=== PATIENT | female | born 1965 | race African-American/Black ===

== ENCOUNTER 2017-09-08 11:43 | Observation (INO) | payer OTHER ==
--- NOTE | 2017-09-08 13:34 | PDOC ---
History of Present Illness - General Chief Complaint: Chest Pain Stated Complaint: CHEST PAIN/ RT SIDE NUMBNESS Time Seen by Provider: 09/08/17 13:28 History Source: Patient Exam Limitations: No Limitations - History of Present Illness Initial Comments: 09/08/17 15:17 51F with pmh of fibromyalgia and chronic back pain s/p laminectomy and fusion, and rheumatoid arthritis presents with 9/10 pain that started in the neck and progressed in the right side of her head, chest, back, right arm, right hip and right legs for the past 2 days. Also complains of blurry vision associated with her headaches. The pain has been progressively worse and has prevented her from sleeping the past few days. No nuchal rigidity, no shortness of breath, dysuria Last seen her industry consultant Dr. Byers in June 2016 09/08/17 16:25 09/08/17 17:38 Past History - Past Medical History Allergies/Adverse Reactions: Allergies Allergy/AdvReac Type Severity Reaction Status Date / Time peanut Allergy Severe Rash Verified 09/08/17 11:55 oxycodone AdvReac Itching Verified 09/08/17 11:55 Home Medications: Ambulatory Orders NK [No Known Home Medication] 09/08/17 Anemia: Yes Asthma: No Cancer: No Cardiac Disorders: No CVA: No COPD: No CHF: No Dementia: No Diabetes: No GI Disorders: No Disorders: No HTN: Yes Hypercholesterolemia: No Liver Disease: No Seizures: No Thyroid Disease: No - Surgical History Abdominal Surgery: No Appendectomy: No Cardiac Surgery: No Cholecystectomy: No Lung Surgery: No Neurologic Surgery: Yes (FUSION, RODS) Orthopedic Surgery: No - Immunization History Immunization Up to Date: Yes - Suicide/Smoking/Psychosocial Hx Smoking History: Never smoked Have you smoked in the past 12 months: No Hx Alcohol Use: Yes Drug/Substance Use Hx: No Substance Use Type: Alcohol Hx Substance Use Treatment: No Review of Systems - Review of Systems Able to Perform ROS?: Yes Constitutional: Yes: Weakness. No: Chills, Fever HEENTM: Yes: Blurred Vision, Recent change in vision Respiratory: No: Symptoms reported Cardiac (ROS): Yes: Chest Pain ABD/GI: Yes: Abdominal cramping. No: Symptoms Reported, Abd. Pain w/ defecation , Constipated, Nausea : No: Symptoms Reported Musculoskeletal: Yes: Back Pain, Muscle Pain Integumentary: No: Bruising, Change in Color, Dryness, Erythema Neurological: Yes: Headache, Numbness. No: Paresthesia, Seizure All Other Systems: Reviewed and Negative *Physical Exam - Vital Signs Last Vital Signs Temp Pulse Resp BP Pulse Ox 99.3 F 96 H 19 142/103 99 09/08/17 11:55 09/08/17 11:55 09/08/17 11:55 09/08/17 11:55 09/08/17 11:55 - Physical Exam General Appearance: Yes: Nourished, Appropriately Dressed, Moderate Distress. No: Alcohol on Breath, Intoxicated HEENT: positive: EOMI, QUIRINO Neck: positive: Tender, Decreased range of motion Respiratory/Chest: positive: Chest Tender, Lungs Clear, Normal Breath Sounds. negative: Respiratory Distress Cardiovascular: positive: Regular Rhythm, Regular Rate, S1, S2 Vascular Pulses: Dorsalis-Pedis (R): 2+, Doralis-Pedis (L): 2+ Gastrointestinal/Abdominal: positive: Tender (lower R quadrant), Guarding Musculoskeletal: negative: CVA Tenderness Extremity: negative: Normal Range of Motion Neurologic: positive: Fully Oriented, Alert, Normal Mood/Affect, Sensory Deficit ED Treatment Course - LABORATORY CBC & Chemistry Diagram: 09/09/17 06:15 09/08/17 14:43 Medical Decision Making - Medical Decision Making 09/08/17 14:51 51F with pmh of fibromyalgia and chronic back pain s/p laminectomy and fusion, and rheumatoid arthritis presents with 9/10 generalized right-sided pain Spoke to Dr. Barbara Byers [employer], last saw the patient June 2016 for her second visit, says the the patient tested negative for all serology including KELLI, RF WBC 17.5, + LEQ tenderness UA neg CTA w/PO and IV contrast pending. D-dimer >5000. Could be from msk inflammatory process Venous Doppler of Upper and Lower extremities pending. If positive, will have to wait before doing CTA. 09/08/17 18:15 09/08/17 19:08 PAtient signed out to Dr. Rodriguez *DC/Admit/Observation/Transfer Diagnosis at time of Disposition: Pain of right side of body
[2017-09-08] MEDS ORDERED: KETOROLAC TROMETHAMINE 60 MG/2 ML VIAL IVPUSH ONE (13:41)
[2017-09-08] MEDS ORDERED: KETOROLAC TROMETHAMINE 60 MG/2 ML VIAL IM ONE (13:48)
[2017-09-08] MEDS ORDERED: KETOROLAC TROMETHAMINE 60 MG/2 ML VIAL ONE (14:00)
[2017-09-08 14:01] LABS: BASOPHIL 0.9 % (0-2.0); MCH 22.8 pg (25.7-33.7); MCHC 31.4 g/dl (32.0-36.0); MEAN CELL VOLUME 72.8 fl (80-96); MEAN PLT VOLUME 7.4 fl (7.5-11.1); NEUTROPHILS 74.9 % (42.8-82.8); PLATELET COUNT 417 K/MM3 (134-434); RDW 16.9 % (11.6-15.6); WHITE BLOOD COUNT 17.5 K/mm3 (4.0-10.0)
[2017-09-08 14:15] LABS: URINE APPEARANCE SLCLOUDY; URINE BILIRUBIN NEGATIVE (NEGATIVE); URINE BLOOD NEGATIVE (NEGATIVE); URINE COLOR LTYELLOW; URINE GLUCOSE (UA) NEGATIVE (NEGATIVE); URINE KETONE NEGATIVE (NEGATIVE); URINE NITRITE NEGATIVE (NEGATIVE); URINE PROTEIN NEGATIVE (NEGATIVE); URINE UROBILINOGEN NEGATIVE mg/dL (0.2-1.0)
[2017-09-08 15:28] LABS: ALBUMIN 3.8 g/dl (3.4-5.0); ALK PHOS 73 U/L (45-117); ANION GAP 7 (8-16); BILIRUBIN,TOTAL 0.2 mg/dL (0.2-1.0); C-REACTIVE PROTEIN 2.8 MG/DL (0.00-0.3); CALCIUM 9.2 mg/dL (8.5-10.1); CO2 31 mmol/L (21-32); CPK 126 IU/L (26-192); CREATININE 0.7 mg/dL (0.55-1.02); GLUCOSE,RANDOM 96 mg/dL (74-106); SGOT/AST 17 U/L (15-37); SGPT/ALT 35 U/L (12-78); TOT PROT 7.3 g/dl (6.4-8.2)
[2017-09-08 15:30] LABS: TROPONIN I 0.03 ng/ml (0.00-0.05)
[2017-09-08] MEDS ORDERED: amLODIPine BESYLATE 10 MG TABLET (FP) PO ONE (15:58)
[2017-09-08] MEDS ORDERED: diphenhydrAMINE HCL 25 MG CAPSULE (FP) PO ONE ×2 (15:59→17:09)
--- NOTE | 2017-09-08 16:38 | PDOC ---
Attending Attestation - Resident Resident Name: Bull Herrera - ED Attending Attestation I have performed the following: I have examined & evaluated the patient, The case was reviewed & discussed with the resident, I agree w/resident's findings & plan, Exceptions are as noted - HPI HPI: 09/08/17 16:35 51-year-old female with history of fibromyalgia presents to the ER with intermittent right-sided headache, bilateral neck pain, right shoulder, That is exacerbated by arm movements, right sided sharp chest discomfort, right lower quadrant abdominal pain and right hip pain - Physicial Exam PE: 09/08/17 16:35 Patient is awake and alert, rectal temperature is noted to be 98.8. Patient's hypertensive on initial evaluation. Physical exam reveals intact cranial nerves bilaterally; perrla cta rrr + Right lower quadrant and right upper quadrant tenderness to palpation without guarding or rebound; no CVA tenderness is noted bilaterally; + Reproducible trapezial tenderness to palpation bilaterally with pain at the right shoulder joint with abduction and flexion; pelvis is stable; Patient ambulates with a slight limp due to right hip pain. - Medical Decision Making 09/08/17 16:37 Patient is a 51-year-old female with history of fiber myalgia who presents with multiple complaints. Headache is unlikely related to acute meningitis or subarachnoid hemorrhage. I do not believe that the CT of head is indicated at this time. EKG shows no evidence of acute ischemia. Patient is low probably for PE and we'll obtain d-dimer to rule out. If d-dimer is elevated, will obtain CTA of chest. CBC shows WBCs of 17.5 with normal differential. Will obtain CT of abdomen and pelvis with by mouth and IV contrast to rule out appendicitis. Will obtain shoulder x-ray to rule out DJD. We'll administer Toradol and IV fluids. Will reassess.
[2017-09-08] MEDS ORDERED: amLODIPine BESYLATE 5 MG TABLET (FP) ONE (17:09)
[2017-09-08 18:07] LABS: URINE LEUK ESTERASE 1+ (NEGATIVE)
--- NOTE | 2017-09-08 19:09 | PDOC ---
History of Present Illness - General Chief Complaint: Chest Pain Stated Complaint: CHEST PAIN/ RT SIDE NUMBNESS Time Seen by Provider: 09/08/17 13:28 Past History - Past Medical History Allergies/Adverse Reactions: Allergies Allergy/AdvReac Type Severity Reaction Status Date / Time peanut Allergy Severe Rash Verified 09/08/17 11:55 oxycodone AdvReac Itching Verified 09/08/17 11:55 Home Medications: Ambulatory Orders Docusate Sodium [Colace -] 100 mg PO TID #100 cap 09/10/17 Ketorolac Tromethamine [Toradol] 10 mg PO Q6H PRN #20 tablet MDD 4 tabs Sennosides [Senna -] 1 tab PO HS PRN #60 tablet 09/10/17 Anemia: Yes Asthma: No Cancer: No Cardiac Disorders: No CVA: No COPD: No CHF: No Dementia: No Diabetes: No GI Disorders: No Disorders: No HTN: Yes Hypercholesterolemia: No Liver Disease: No Seizures: No Thyroid Disease: No - Surgical History Abdominal Surgery: No Appendectomy: No Cardiac Surgery: No Cholecystectomy: No Lung Surgery: No Neurologic Surgery: Yes (FUSION, RODS) Orthopedic Surgery: No - Immunization History Immunization Up to Date: Yes - Suicide/Smoking/Psychosocial Hx Smoking History: Never smoked Have you smoked in the past 12 months: No Hx Alcohol Use: Yes Drug/Substance Use Hx: No Substance Use Type: Alcohol Hx Substance Use Treatment: No *Physical Exam - Vital Signs Last Vital Signs Temp Pulse Resp BP Pulse Ox 98.4 F 68 18 169/102 99 09/08/17 18:27 09/08/17 18:27 09/08/17 18:27 09/08/17 18:27 09/08/17 18:27 ED Treatment Course - LABORATORY CBC & Chemistry Diagram: 09/09/17 06:15 09/08/17 14:43 - ADDITIONAL ORDERS Additional order review: Laboratory Results 09/08/17 09/08/17 09/08/17 16:05 14:43 13:55 D-Dimer > 5000 H Sodium 141 Potassium 3.8 Chloride 103 Carbon Dioxide 31 Anion Gap 7 L BUN 9 Creatinine 0.7 Creat Clearance w eGFR > 60 Random Glucose 96 Calcium 9.2 Total Bilirubin 0.2 D AST 17 ALT 35 D Alkaline Phosphatase 73 D Creatine Kinase 126 Troponin I 0.03 C-Reactive Protein 2.8 H Cancelled Total Protein 7.3 Albumin 3.8 TSH Urine Color Urine Appearance Urine pH Ur Specific [place] Urine Protein Urine Glucose (UA) Urine Ketones Urine Blood Urine Nitrite Urine Bilirubin Urine Urobilinogen Ur Leukocyte Esterase 09/08/17 09/08/17 13:42 13:42 D-Dimer Sodium Cancelled Potassium Cancelled Chloride Cancelled Carbon Dioxide Cancelled Anion Gap Cancelled BUN Cancelled Creatinine Cancelled Creat Clearance w eGFR Cancelled Random Glucose Cancelled Calcium Cancelled Total Bilirubin Cancelled AST Cancelled ALT Cancelled Alkaline Phosphatase Cancelled Creatine Kinase Cancelled Troponin I Cancelled C-Reactive Protein Total Protein Cancelled Albumin Cancelled TSH Cancelled Urine Color Ltyellow Urine Appearance Slcloudy Urine pH 5.0 D Ur Specific [place] 1.010 Urine Protein Negative Urine Glucose (UA) Negative Urine Ketones Negative Urine Blood Negative Urine Nitrite Negative Urine Bilirubin Negative Urine Urobilinogen Negative Ur Leukocyte Esterase 1+ H 09/08/17 13:42 RBC 5.19 MCV 72.8 L MCHC 31.4 L RDW 16.9 H MPV 7.4 L D Neutrophils % 74.9 D Lymphocytes % 17.5 D Monocytes % 4.7 Eosinophils % 2.0 Basophils % 0.9 - Medications Given in the ED: ED Medications Discontinued Medications Generic Name Dose Route Start Last Admin Trade Name Leandra PRN Reason Stop Dose Admin Amlodipine Besylate 10 mg 09/08/17 15:58 09/08/17 18:12 Norvasc - PO 09/08/17 15:59 10 mg ONCE ONE Administration Diphenhydramine HCl 25 mg 09/08/17 15:59 09/08/17 18:12 Benadryl - PO 09/08/17 16:00 25 mg ONCE ONE Administration Ketorolac Tromethamine 60 mg 09/08/17 13:41 09/08/17 13:57 Toradol Injection - IVPUSH 09/08/17 13:42 Not Given ONCE ONE Ketorolac Tromethamine 60 mg 09/08/17 13:48 09/08/17 13:58 Toradol Injection - IM 09/08/17 13:49 60 mg ONCE ONE Administration Oxycodone/Acetaminophen 1 combo 09/08/17 15:59 09/08/17 18:12 Percocet 5/325 - PO 09/08/17 16:00 1 combo ONCE ONE Administration Medical Decision Making - Medical Decision Making 09/08/17 19:09 51F with pmh of fibromyalgia and chronic back pain s/p laminectomy and fusion, and rheumatoid arthritis presents with 9/10 generalized right-sided pain Pending duplex of arms/legs. 09/08/17 23:14 Patient accepted by hospitalist to obs *DC/Admit/Observation/Transfer Diagnosis at time of Disposition: Pain of right side of body - Discharge Dispostion Disposition: HOME Condition at time of disposition: Improved - Prescriptions
[2017-09-08 21:37] LABS: URINE RBC 0-2 /hpf (0-3)
[2017-09-08] MEDS ORDERED: ALBUTEROL SO4 2.5/IPRATROPIUM 0.5 INH SOL 3 ML VIAL.NEB. NEB ONE (22:25)
[2017-09-08] MEDS ORDERED: HEPARIN NA (PORCINE) 5,000 UNITS/ML 1ML VIAL ONE (23:53)
--- NOTE | 2017-09-08 23:53 | PN ---
Teaching Attending Note Name of Resident: Karlo Vicente ATTENDING PHYSICIAN STATEMENT I saw and evaluated the patient. I reviewed the resident's note and discussed the case with the resident. I agree with the resident's findings and plan as documented. SUBJECTIVE: 51 yearold female that presents today c/o right shoulder pain x 2 days duration . Pain is intermittent , stabbing/pulsating , radiating to right side of her neck and head. It started abruptly and progressed in intensity over the course of time. She reports associated RLE pain , chills and lower back pain . DENIES CHEST PAIN Denies Blurry Vision Past medical history is significant for Rheumatoid Arthritis ( b/l hands are affected, was on prednisone but ran out 2- 3 month ago ) Fibromyalgia diagnosed 1 year ago Chronic back pain and DJD of the spine Lumbar Fusion OBJECTIVE: Vital Signs Temperature 98.4 F 09/08/17 18:27 Pulse Rate 68 09/08/17 18:27 Respiratory Rate 18 09/08/17 18:27 Blood Pressure 169/102 09/08/17 18:27 O2 Sat by Pulse Oximetry (%) 99 09/08/17 18:27 HEENT - PERRLA CVS S1 S2 WNL Musculosceletal : tenderness on palpation of cervical paraspinal muscles , right shoulder and right leg Neuro - 5/5 strength throughout CBC, BMP 09/08/17 13:42 09/08/17 14:43 CMP Sodium 141 mmol/L (136-145) 09/08/17 14:43 Potassium 3.8 mmol/L (3.5-5.1) 09/08/17 14:43 Chloride 103 mmol/L (98-107) 09/08/17 14:43 Carbon Dioxide 31 mmol/L (21-32) 09/08/17 14:43 Anion Gap 7 (8-16) L 09/08/17 14:43 BUN 9 mg/dL (7-18) 09/08/17 14:43 Creatinine 0.7 mg/dL (0.55-1.02) 09/08/17 14:43 Creat Clearance w eGFR > 60 (>60) 09/08/17 14:43 Random Glucose 96 mg/dL (74-106) 09/08/17 14:43 Calcium 9.2 mg/dL (8.5-10.1) 09/08/17 14:43 Total Bilirubin 0.2 mg/dL (0.2-1.0) D 09/08/17 14:43 AST 17 U/L (15-37) 09/08/17 14:43 ALT 35 U/L (12-78) D 09/08/17 14:43 Alkaline Phosphatase 73 U/L (45-117) D 09/08/17 14:43 Creatine Kinase 126 IU/L (26-192) 09/08/17 14:43 Troponin I 0.03 ng/ml (0.00-0.05) 09/08/17 14:43 C-Reactive Protein 2.8 MG/DL (0.00-0.3) H 09/08/17 14:43 Total Protein 7.3 g/dl (6.4-8.2) 09/08/17 14:43 Albumin 3.8 g/dl (3.4-5.0) 09/08/17 14:43 TSH Cancelled 09/08/17 13:42 Home Medication List Medication Instructions Recorded Confirmed Type NK [No Known Home Medication] 09/08/17 09/08/17 History Active Medications Generic Name Dose Route Start Last Admin Trade Name Freq PRN Reason Stop Dose Admin Heparin Sodium (Porcine) 5,000 unit 09/08/17 23:45 Heparin - SQ TID [facility] Sodium Chloride 1,000 mls @ 75 mls/hr 09/08/17 23:45 Normal Saline - IV ASDIR [facility] Ketorolac Tromethamine 15 mg 09/08/17 23:30 Toradol Injection - IVPUSH 09/13/17 23:29 Q6H PRN PAIN ASSESSMENT AND PLAN: 1. Right shoulder pain , RLE pain - based on physical exam this is most likely musculosceletal and possibly related to Fibromyalgia. - lyrica - toradol PRN 2. Significantly elevated ddimer - low suspicion for PE however was screened . This could be due to inflammatory process / rheum condition . - US was done in ED - no acute findings - CTA needs to be performed to rule out PE 3. Constipation - CT abdomen was performed with contrast and showed severe constipation - Senna po stat - hydrate 4. DVT PPX - heparin OBS
[2017-09-09] MEDS ORDERED: SENNOSIDES 8.6MG TABLET (FP) PO PRN
--- NOTE | 2017-09-09 00:05 | HP ---
CHIEF COMPLAINT: Right neck pain PCP: Rhematologist: Dr. Byers HISTORY OF PRESENT ILLNESS: Pt is a 51 year old F with PMH fibromyalgia and RA who presented to ED with sudden onset 9/10 intermittent stabbing right shoulder pain with radiation to the right neck, head, chest, hip, knee, and leg. The pain began 2 days ago and worsened yesterday. Per the ED note, pt described associated blurry vision, but she denied visual changes in this interview. Pt also describes right abdominal pain which began in the hospital. This pain was similar in severity and character to the radiating shoulder pain. When asked, pt admits to mild nausea. Last bowel movement was 1 week ago. Pt denies vomiting, diarrhea, visual changes, difficulty eating, burning on urination, urgency. ER course was notable for: (1) WBC 17, D-dimer >5000 (2) imaging negative for DVT in all 4 extremities. Shoulder X-ray negative for acute process. Abd/pelv CT significant for retained feces. (3) Recent Travel: denies PAST MEDICAL HISTORY: HTN, Fibromyalgia, RA, chronic back pain, scoliosis PAST SURGICAL HISTORY: L5-S1 laminectomy and fusion, fibroidectomy x2, hysterectomy Social History: Smoking: denies Alcohol: rarely Drugs: denies Pt refused screening for HIV Family History: HTN, DM Allergies peanut Allergy (Severe, Verified 09/08/17 11:55) Rash oxycodone Adverse Reaction (Verified 09/08/17 11:55) Itching TAKES WITH BENADRYL HOME MEDICATIONS: Home Medications Medication Instructions Recorded NK [No Known Home Medication] 09/08/17 REVIEW OF SYSTEMS CONSTITUTIONAL: Absent: fever, chills, diaphoresis, generalized weakness, malaise, loss of appetite, weight change HEENT: Absent: rhinorrhea, nasal congestion, throat pain, throat swelling, difficulty swallowing, mouth swelling, ear pain, eye pain, visual changes CARDIOVASCULAR: chest pain Absent: , syncope, palpitations, irregular heart rate, lightheadedness, peripheral edema RESPIRATORY: Absent: cough, shortness of breath, dyspnea with exertion, orthopnea, wheezing, stridor, hemoptysis GASTROINTESTINAL:abdominal pain, nausea, constipation Absent: , abdominal distension, , vomiting, diarrhea, melena, hematochezia GENITOURINARY: Absent: dysuria, frequency, urgency, hesitancy, hematuria, flank pain, genital pain MUSCULOSKELETAL: myalgia, arthralgia, back pain, neck pain Absent: , joint swelling SKIN: Absent: rash, itching, pallor HEMATOLOGIC/IMMUNOLOGIC: Absent: easy bleeding, easy bruising, lymphadenopathy, frequent infections ENDOCRINE: Absent: unexplained weight gain, unexplained weight loss, heat intolerance, cold intolerance NEUROLOGIC: headache, paresthesias Absent: , focal weakness or , dizziness, unsteady gait, seizure, mental status changes, bladder or bowel incontinence PSYCHIATRIC: Absent: anxiety, depression, suicidal or homicidal ideation, hallucinations. PHYSICAL EXAMINATION Vital Signs - 24 hr 09/08/17 09/08/17 09/08/17 11:55 14:55 18:27 Temperature 99.3 F 99.8 F H 98.4 F Pulse Rate 96 H Pulse Rate [ 68 Left Apical] Respiratory 19 18 Rate Blood Pressure 142/103 Blood Pressure 169/102 [Left Arm] O2 Sat by Pulse 99 99 Oximetry (%) GENERAL: Awake, alert, and fully oriented, in no acute distress. HEAD: Normal with no signs of trauma. Pt reports tenderness on right head with very light touch. EYES: Pupils equal, round and reactive to light, extraocular movements intact, sclera anicteric, conjunctiva clear. No lid lag. EARS, NOSE, THROAT: nares patent, oropharynx clear without exudates. Moist mucous membranes. symmetric palatal elevation. No tongue deviation NECK: Normal range of motion, supple without lymphadenopathy, JVD, or masses. No bruits. Pt reports tenderness on right neck with very light touch. LUNGS: Breath sounds equal, clear to auscultation bilaterally. No wheezes, and no crackles. No accessory muscle use. HEART: Regular rate and rhythm, normal S1 and S2 without murmur, rub or gallop. ABDOMEN: Soft, tender to palpation in RLQ. Later, on distracted exam, TTP in LLQ only, not distended, normoactive bowel sounds, no guarding, no rebound, no masses. No hepatomegaly or splenomegaly. Downey's negative. MUSCULOSKELETAL: Normal range of motion at all joints. No bony deformities or tenderness. No CVA tenderness. pain limited exam. UPPER EXTREMITIES: 2+ pulses, warm, well-perfused. No cyanosis. No clubbing. No peripheral edema. LOWER EXTREMITIES: 2+ pulses, warm, well-perfused. No calf tenderness. No peripheral edema. NEUROLOGICAL: Cranial nerves II-XII intact. Normal speech. Normal gait. PSYCHIATRIC: Cooperative. Good eye contact. Appropriate mood and affect. SKIN: Warm, dry, normal turgor, no rashes or lesions noted, normal capillary refill. Laboratory Results - last 24 hr 09/08/17 09/08/17 09/08/17 13:42 13:42 13:42 WBC 17.5 H D RBC 5.19 Hgb 11.8 Hct 37.7 MCV 72.8 L MCH 22.8 L MCHC 31.4 L RDW 16.9 H Plt Count 417 D MPV 7.4 L D Neutrophils % 74.9 D Lymphocytes % 17.5 D Monocytes % 4.7 Eosinophils % 2.0 Basophils % 0.9 ESR D-Dimer Sodium Cancelled Potassium Cancelled Chloride Cancelled Carbon Dioxide Cancelled Anion Gap Cancelled BUN Cancelled Creatinine Cancelled Creat Clearance w eGFR Cancelled Random Glucose Cancelled Calcium Cancelled Total Bilirubin Cancelled AST Cancelled ALT Cancelled Alkaline Phosphatase Cancelled Creatine Kinase Cancelled Troponin I Cancelled C-Reactive Protein Total Protein Cancelled Albumin Cancelled TSH Cancelled Urine Color Ltyellow Urine Appearance Slcloudy Urine pH 5.0 D Ur Specific [place] 1.010 Urine Protein Negative Urine Glucose (UA) Negative Urine Ketones Negative Urine Blood Negative Urine Nitrite Negative Urine Bilirubin Negative Urine Urobilinogen Negative Ur Leukocyte Esterase 1+ H Urine RBC 0-2 Urine WBC 1-2 09/08/17 09/08/17 09/08/17 13:55 13:55 14:43 WBC RBC Hgb Hct MCV MCH MCHC RDW Plt Count MPV Neutrophils % Lymphocytes % Monocytes % Eosinophils % Basophils % ESR 26 D-Dimer Sodium 141 Potassium 3.8 Chloride 103 Carbon Dioxide 31 Anion Gap 7 L BUN 9 Creatinine 0.7 Creat Clearance w eGFR > 60 Random Glucose 96 Calcium 9.2 Total Bilirubin 0.2 D AST 17 ALT 35 D Alkaline Phosphatase 73 D Creatine Kinase 126 Troponin I 0.03 C-Reactive Protein Cancelled 2.8 H Total Protein 7.3 Albumin 3.8 TSH Urine Color Urine Appearance Urine pH Ur Specific [place] Urine Protein Urine Glucose (UA) Urine Ketones Urine Blood Urine Nitrite Urine Bilirubin Urine Urobilinogen Ur Leukocyte Esterase Urine RBC Urine WBC 09/08/17 09/08/17 14:43 16:05 WBC RBC Hgb Hct MCV MCH MCHC RDW Plt Count MPV Neutrophils % Lymphocytes % Monocytes % Eosinophils % Basophils % ESR Cancelled D-Dimer > 5000 H Sodium Potassium Chloride Carbon Dioxide Anion Gap BUN Creatinine Creat Clearance w eGFR Random Glucose Calcium Total Bilirubin AST ALT Alkaline Phosphatase Creatine Kinase Troponin I C-Reactive Protein Total Protein Albumin TSH Urine Color Urine Appearance Urine pH Ur Specific [place] Urine Protein Urine Glucose (UA) Urine Ketones Urine Blood Urine Nitrite Urine Bilirubin Urine Urobilinogen Ur Leukocyte Esterase Urine RBC Urine WBC ASSESSMENT/PLAN: Pt is a 51 year old F with PMH RA and fibromyalgia who presented to ED with R shoulder pain with radiation to the entire right side of her body. Pt is being placed on Obs to r/o PE. #R/o PE -D-dimer in ED >5000 -pt has no hypoxia, tachycardia, SOB, pedal edema, U/S neg for DVT in 4 extremities -EKG shows no RV strain or ST changes. Pending official read. -D-dimer likely 2/2 inflammation or stress. low likelyhood of PE. -Pt received CT abdomen and XRay in ED, so chest imaging held until tomorrow. V/ Q may be preferable considering extensive imaging already done. #Shoulder pain -sudden onset pain with radiation to entire body without relation to movement or position. -presentation inconsistent with radiculopathy -unclear etiology -shoulder xray negative -toradol #Constipation -last BM 1 week ago. -per prior D/C summary, chronic condition -Senna #Fibromyalgia -possible cause of pt's diffuse pain -on toradol #Rheumatoid arthritis -dx approximately 2 years ago -per pt, mostly affects thumbs -no joint deformity on exam -stable -pt on toradol #HTN -BP slightly elevated in setting of pain -pt cannot remember home meds -suggest restarting home meds once confirmed #Chronic back pain -pt on toradol #Leukocytosis -no sign of infection. No fever, chills, cough, vomiting, diarrhea -likely secondary to stress response -f/u repeat CBC #FEN -on NS @ 75 -lytes wnl -Na controlled diet #Dispo -obs to r/o PE Karlo Vicente MD PGY-1 case discussed with attending and senior Visit type - Emergency Visit Emergency Visit: Yes ED Registration Date: 09/08/17 Care time: The patient presented to the Emergency Department on the above date and was hospitalized for further evaluation of their emergent condition. - New Patient This patient is new to me today: Yes Date on this admission: 09/09/17 - Critical Care Critical Care patient: No
[2017-09-09] MEDS: SODIUM CHLORIDE 1,000 ML IV SCH (00:18)
[2017-09-09] MEDS: HEPARIN NA (PORCINE) 5,000 UNITS/ML 1ML VIAL SQ SCH ×4 (00:26→21:00)
[2017-09-09] MEDS ORDERED: KETOROLAC TROMETHAMINE 15 MG/ML VIAL ONE (00:39)
[2017-09-09] MEDS: KETOROLAC TROMETHAMINE 15 MG/ML VIAL IVPUSH PRN ×2 (00:45→12:00)
[2017-09-09 01:06] LABS: TROPONIN I 0.02 ng/ml (0.00-0.05)
[2017-09-09 06:57] LABS: MCHC 31.5 g/dl (32.0-36.0); MEAN CELL VOLUME 73.2 fl (80-96); MEAN PLT VOLUME 7.5 fl (7.5-11.1); PLATELET COUNT 347 K/MM3 (134-434); RDW 16.6 % (11.6-15.6); WHITE BLOOD COUNT 11.8 K/mm3 (4.0-10.0)
--- NOTE | 2017-09-09 09:49 | EKG ---
Test Reason : Blood Pressure : / mmHG Vent. Rate : 098 BPM Atrial Rate : 098 BPM P-R Int : 158 ms QRS Dur : 082 ms QT Int : 390 ms P-R-T Axes : 054 034 053 degrees QTc Int : 497 ms NORMAL SINUS RHYTHM NONSPECIFIC T WAVE ABNORMALITY ABNORMAL ECG Confirmed by JULIO C AARON MD ([id number]) on 09/09/2017 9:48:58 AM Referred By: Confirmed By:JULIO C AARON MD
[2017-09-09] MEDS ORDERED: POLYETHYLENE GLYCOL 3350 119 GM BTL PO ONE (13:15)
[2017-09-09] MEDS: DOCUSATE SODIUM 100 MG CAPSULE (FP) PO SCH ×2 (14:16→21:00)
[2017-09-09 16:14] VITALS: BMI 33.3
--- NOTE | 2017-09-09 16:15 | PN ---
Physical Exam: SUBJECTIVE: Patient seen and examined in the ER. She states her right shoulder is still painful, c/o of abdominal pain. tolerating diet, no nausea or vomiting OBJECTIVE: Vital Signs Period Temp Pulse Resp BP Sys/Weiner Pulse Ox Last 24 Hr 97.8 F-98.8 F 67-88 18-20 120-151/71-99 98-100 GENERAL: Awake, alert, and fully oriented, in no acute distress. HEAD: Normal with no signs of trauma. Pt reports tenderness on right head with very light touch. EYES: Pupils equal, round and reactive to light, extraocular movements intact, sclera anicteric, conjunctiva clear. No lid lag. EARS, NOSE, THROAT: nares patent, oropharynx clear without exudates. Moist mucous membranes. symmetric palatal elevation. No tongue deviation NECK: Normal range of motion, supple without lymphadenopathy, JVD, or masses. No bruits. Pt reports tenderness on right neck with very light touch. LUNGS: Breath sounds equal, clear to auscultation bilaterally. No wheezes, and no crackles. No accessory muscle use. HEART: Regular rate and rhythm, normal S1 and S2 without murmur, rub or gallop. ABDOMEN: Soft, tender to palpation in RLQ. Later, on distracted exam, TTP in LLQ only, not distended, normoactive bowel sounds, no guarding, no rebound, no masses. No hepatomegaly or splenomegaly. Downey's negative. MUSCULOSKELETAL: Normal range of motion at all joints. No bony deformities or tenderness. No CVA tenderness. pain limited exam. UPPER EXTREMITIES: 2+ pulses, warm, well-perfused. No cyanosis. No clubbing. No peripheral edema. LOWER EXTREMITIES: 2+ pulses, warm, well-perfused. No calf tenderness. No peripheral edema. NEUROLOGICAL: Cranial nerves II-XII intact. Normal speech. Normal gait. PSYCHIATRIC: Cooperative. Good eye contact. Appropriate mood and affect. SKIN: Warm, dry, normal turgor, no rashes or lesions noted, normal capillary refill. Laboratory Results - last 24 hr 09/09/17 09/09/17 09/09/17 00:25 06:15 11:14 WBC 11.8 H D RBC 4.69 Hgb 10.8 Hct 34.3 MCV 73.2 L MCH 23.0 L MCHC 31.5 L RDW 16.6 H Plt Count 347 MPV 7.5 Creatine Kinase 122 Troponin I 0.02 0.02 Active Medications Generic Name Dose Route Start Last Admin Trade Name Leandra PRN Reason Stop Dose Admin Docusate Sodium 100 mg 09/09/17 14:00 09/09/17 14:16 Colace - PO 100 mg TID LEIF Administration Heparin Sodium (Porcine) 5,000 unit 09/08/17 23:45 09/09/17 14:00 Heparin - SQ 5,000 unit TID LEIF Administration Sodium Chloride 1,000 mls @ 75 mls/hr 09/08/17 23:45 09/09/17 00:18 Normal Saline - IV 75 mls/hr ASDIR LEIF Administration Ketorolac Tromethamine 15 mg 09/08/17 23:30 09/09/17 12:00 Toradol Injection - IVPUSH 09/13/17 23:29 15 mg Q6H PRN Administration PAIN Senna 1 tab 09/09/17 00:00 Senna - PO HS PRN CONSTIPATION ASSESSMENT/PLAN: Pt is a 51 year old F with PMH rheumatoid arthritis and fibromyalgia who presented to ED with R shoulder pain with radiation to the entire right side of her body. Muscular/Skeletal, acute on chronic Right shoulder pain , RLE pain/abdominal pain Likely muscular skeletal pain, denies trauma Ruled out for PE Manage pain with Toradol, pain improving, not yet controlled Physical therapy in a.m. Pulmonary: Elevated d dimer, acute Negative for PE Troponins negative x 3 GI: Constipation, chronic CT abdomen was performed with contrast and showed severe constipation Miralax, senna, colace, hydration F.E.N. NS @ 75cc/hr Electrolytes: monitor Nutrition: low sodium DVT: heparin GI: colace, miralax, senna Disposition: full code
[2017-09-10] MEDS: SODIUM CHLORIDE 1,000 ML IV SCH (00:44)
[2017-09-10] MEDS: DOCUSATE SODIUM 100 MG CAPSULE (FP) PO SCH (06:44)
[2017-09-10] MEDS: HEPARIN NA (PORCINE) 5,000 UNITS/ML 1ML VIAL SQ SCH (06:48)
[2017-09-10] MEDS ORDERED: BISACODYL 10 MG SUPP.RECT PR ONE (07:58)
--- NOTE | 2017-09-10 08:05 | DS ---
Physical Exam: SUBJECTIVE: Patient seen and examined OBJECTIVE: Vital Signs Period Temp Pulse Resp BP Sys/Weiner Pulse Ox Last 24 Hr 97.7 F-98.3 F 64-88 16-20 120-153/63-95 98-100 PHYSICAL EXAM GENERAL: The patient is awake, alert, and fully oriented, in no acute distress. HEAD: Normal with no signs of trauma. EYES: PERRL, extraocular movements intact, sclera anicteric, conjunctiva clear. ENT: Ears normal, nares patent, oropharynx clear without exudates, moist mucous membranes. NECK: Trachea midline, full range of motion, supple. LUNGS: Breath sounds equal, clear to auscultation bilaterally, no wheezes, no crackles, no accessory muscle use. HEART: Regular rate and rhythm, S1, S2 without murmur, rub or gallop. ABDOMEN: Soft, nontender, nondistended, normoactive bowel sounds, no guarding, no rebound, no hepatosplenomegaly, no masses. EXTREMITIES: 2+ pulses, warm, well-perfused, no edema. NEUROLOGICAL: Cranial nerves II through XII grossly intact. Normal speech, gait not observed. PSYCH: Normal mood, normal affect. SKIN: Warm, dry, normal turgor, no rashes or lesions noted. LABS Laboratory Results - last 24 hr 09/09/17 11:14 Troponin I 0.02 HOSPITAL COURSE: Date of Admission:09/08/17 Date of Discharge: 09/10/17 ASSESSMENT/PLAN: Pt is a 51 year old F with PMH rheumatoid arthritis and fibromyalgia who presented to ED with R shoulder pain with radiation to the entire right side of her body. Muscular/Skeletal: Right shoulder pain , RLE pain/abdominal pain, resolved Likely muscular skeletal pain, denies trauma Ruled out for PE Manage pain with Toradol, pain now resolved Patient seen ambulating without difficulty, denies pain with ambulation Pulmonary: Elevated d dimer, acute/PE ruled out Negative for PE Troponins negative x 3 GI: Constipation, chronic CT abdomen was performed with contrast and showed severe constipation Miralax, senna, colace, hydration Reported to have a BM overnight, given dulcolax before d/c Denies abdominal pain, no distension, + bowel sounds, denies nausea or vomiting Disposition: full code. OBS patient, for discharge today Minutes to complete discharge: 45 Discharge Summary Reason For Visit: POSITIVE D-DIMER Current Active Problems Pain of right side of body (Acute) Condition: Improved - Instructions Diet, Activity, Other Instructions: Ms. Sears: Please follow up with your primary care physician and have our CT scan repeated in three months (report will be given to you for you to take to your PCP) Please follow up with an ultrasound of your thyroid with your PCP. Please take the cat scan report with you when you see your physician. For your constipation: Please take Miralax daily (over the counter), Colace three times per day (over the counter) and Senna at bedtime (over the counter). Please call me with any questions you may have Nury Aggarwal [facility] @ [facility] [phone] Disposition: HOME - Home Medications Comprehensive Discharge Medication List: Ambulatory Orders Docusate Sodium [Colace -] 100 mg PO TID #100 cap 09/10/17 Sennosides [Senna -] 1 tab PO HS PRN #60 tablet 09/10/17 This patient is new to me today: No Emergency Visit: Yes ED Registration Date: 09/08/17 Care time: The patient presented to the Emergency Department on the above date and was hospitalized for further evaluation of their emergent condition. Critical Care patient: No - Discharge Referral Referred to [facility] No
[2017-09-10 09:02] VITALS: BP 133/80; PULSE 74; TEMP 98.2
== END 2017-09-10 10:16 | disposition home or self-care (01) ==
LOC: JER 11:43 → JERBED 23:06 → UNDOADMOB 09-09 05:53 → J7W 09-09 15:41
PROVIDERS: ADMIT Internal Medicine; ATTEND Nurse Practitioner Family
PROC: 3E0233Z Introduction of Anti-inflammatory into Muscle, Percutaneous Approach (ICD-10-PCS; principal; 2017-09-08)
DX: M79.1 Myalgia (principal); R79.1 Abnormal coagulation profile; I10 Essential (primary) hypertension; D64.9 Anemia, unspecified; M54.5 Low back pain; G89.29 Other chronic pain; D72.829 Elevated white blood cell count, unspecified; M79.7 Fibromyalgia; M06.9 Rheumatoid arthritis, unspecified; K59.00 Constipation, unspecified; Z98.1 Arthrodesis status; Z91.010 Allergy to peanuts; Z88.6 Allergy status to analgesic agent
CPT/HCPCS: 36415; 71275-TC; 73030-TC-RT; 74177-TC; 80053; 81003; 81015; 82550; 84484; 85025; 85027; 85379; 85651; 86140; 87040; 87086; 93005; 93010; 93970-TC; 96372; 99285-25; G0378; J1644; Q9967